=== PATIENT | male | born 1995 | race African-American/Black ===

== ENCOUNTER 2018-12-31 13:24 | Emergency (ER) | payer OTHER ==
[2018-12-31 13:57] VITALS: BP 130/88; PULSE 80; TEMP 98.2; BMI 29.2
--- NOTE | 2018-12-31 14:06 | PDOC ---
History of Present Illness - General Chief Complaint: Laceration Stated Complaint: RT HAND MIDDLE FINGER Laceration Time Seen by Provider: 12/31/18 13:55 History Source: Patient Exam Limitations: No Limitations - History of Present Illness Initial Comments: 12/31/18 14:00 HISTORY OF PRESENT ILLNESS: This is a 23-year-old male presents emergency department for evaluation of laceration to right third digit sustained while preparing lunch. Patient was making hot dogs and noodles when he became distracted and accidentally cut his knuckle with the kitchen knife. Patient washed his immediately and then applied a dressing prior to coming to the emergency department. Patient is right-hand dominant. Last tetanus shot is unknown. No recent travel or sick contacts. PAST MEDICAL HISTORY: Denies past medical history SURGICAL HISTORY: Denies ALLERGIES: No known drug allergies REVIEW OF SYSTEMS General/Constitutional: Denies fever or chills. Denies weakness, weight change. HEENT: Denies change in vision. Denies ear pain or discharge. Denies sore throat. Cardiovascular: Denies chest pain or shortness of breath. Respiratory: Denies cough, wheezing, or hemoptysis. Gastrointestinal: Denies nausea, vomiting, diarrhea or constipation. Denies rectal bleeding. Genitourinary: Denies dysuria, frequency, or change in urination. Musculoskeletal: Denies joint or muscle swelling or pain. Denies neck or back pain. Skin and breasts: see HPI Neurologic: Denies headache, vertigo, loss of consciousness, or loss of sensation. Psychiatric: Denies depression or anxiety. Endocrine: Denies increased thirst. Denies abnormal weight change. Hematologic/Lymphatic: Denies anemia, easy bleeding, or history of blood clots. Allergic/Immunologic: Denies hives or skin allergy. Denies latex allergy. PHYSICAL EXAM General Appearance: Well-appearing, appropriately dressed. No apparent distress , no intoxication. Respiratory/Chest: Lungs CTAB. No shortness of breath, chest tenderness, respiratory distress, accessory muscle use. No crackles, rales, rhonchi, stridor , wheezing, dullness Cardiovascular: RRR. S1, S2. No JVD, murmur, bradycardia, tachycardia. Musculoskeletal/Extremities: Normal inspection. FROM of all extremities, normal capillary refill. Pelvis Stable. No CVA tenderness. No tenderness to extremities, pedal edema, swelling, erythema or deformity. Integumentary: Approximate 1 cm transverse linear superficial laceration present to the dorsum of the right third finger over the proximal aspect of the middle phalanx. Bleeding is well-controlled. Full flexion and extension of the digit without difficulty. Normal sensation distal to the injury. Capillary refill is less than 2 seconds. Neurologic: tailings man II-XII intact. Fully oriented, alert. Appropriate mood/affect. Motor strength 5/5. No appreciable EOM palsy, facial droop or sensory deficit. 12/31/18 14:25 Past History - Past Medical History Allergies/Adverse Reactions: Allergies Allergy/AdvReac Type Severity Reaction Status Date / Time No Known Allergies Allergy Verified 01/29/16 12:44 Home Medications: Ambulatory Orders Naproxen [Naprosyn -] 500 mg PO BID #14 tablet 01/29/16 COPD: No - Immunization History Immunization Up to Date: Yes - Suicide/Smoking/Psychosocial Hx Smoking Status: Yes Smoking History: Never smoked Number of Cigarettes Smoked Daily: 0 Hx Alcohol Use: No Drug/Substance Use Hx: No Substance Use Type: None *Physical Exam - Vital Signs Last Vital Signs Temp Pulse Resp BP Pulse Ox 98.2 F 80 17 130/88 98 12/31/18 13:43 12/31/18 13:43 12/31/18 13:43 12/31/18 13:43 12/31/18 13:43 Procedures - Consent Consent obtained: Verbal, From Patient - Laceration/Wound Repair Right Dorsal Finger 3rd digit Wound Length: to 2.5 cm Wound Explored: clean Wound's Depth, Shape: superficial, linear Irrigated w/ Saline: Yes Betadine Prep: Yes Anesthesia: 1% Lidocaine Amount of Anesthetic (ccs): 4 Wound Debrided: minimal Wound Repaired With: Sutures Suture Size/Type: 5:0, proline Number of Sutures: 2 Layer Closure: No Sterile Dressing Applied: Yes Splint Applied: Yes Type of Splint Applied: baseball splint Sling Applied: No Progress: 12/31/18 14:24 Patient tolerated well. Medical Decision Making - Medical Decision Making 12/31/18 14:04 A/P: 23-year-old male with laceration to right third finger Tetanus shot Laceration repair-see procedure note for details Discharge home Portions of this note have been documented using voice recognition software. As a result, errors may occur in the pharmacy sales representative process. Effort has been made to correct all grammatical and pharmacy sales representative error, but some may have been missed. 12/31/18 14:25 *DC/Admit/Observation/Transfer Diagnosis at time of Disposition: Finger laceration Qualifiers: Encounter type: initial encounter Finger: middle finger Damage to nail status: without damage Foreign body presence: without foreign body Laterality: right Qualified Code(s): S61.212A - Laceration without foreign body of right middle finger without damage to nail, initial encounter - Discharge Dispostion Disposition: HOME Condition at time of disposition: Stable Decision to Admit order: No - Referrals Referrals: Walter Castorena MD [Primary Care Provider] - - Patient Instructions Additional Instructions: Rest, elevate, avoid strenuous activity or heavy lifting until sutures are removed Leave dressing on for the next 24 hours, Then may remove dressing gently and wash area with soap and water. Reapply bacitracin ointment and dressing daily for the next 5 days On day #6 keep the wound protected and cover as needed until sutures are removed allowing wound to start to dry May use Tylenol or Motrin for pain relief Suture removal in : 7-10 Days - Post Discharge Activity Forms/Work/School Notes: Back to Work
[2018-12-31] MEDS ORDERED: DIPHTH,PERTUSS(ACELL),TET 0.5 ML DISP.SYRIN IM ONE ×2 (14:32→14:36)
== END 2018-12-31 14:38 | disposition home or self-care (01) ==
LOC: JERFT 13:24
PROC: 0HQFXZZ Repair Right Hand Skin, External Approach (ICD-10-PCS; principal; 2018-12-31)
PROC: 3E0234Z Introduction of Serum, Toxoid and Vaccine into Muscle, Percutaneous Approach (ICD-10-PCS; 2018-12-31)
DX: S61.212A Laceration without foreign body of right middle finger without damage to nail, initial encounter (principal); W26.0XXA Contact with knife, initial encounter; Y93.89 Activity, other specified; Y92.89 Other specified places as the place of occurrence of the external cause
CPT/HCPCS: 12001-25; 90471; 90715; 99281-25

== ENCOUNTER 2019-01-08 11:30 | Emergency (ER) | payer OTHER ==
[2019-01-08 11:42] VITALS: BP 136/71; PULSE 68; TEMP 98.4; BMI 32.8
--- NOTE | 2019-01-08 12:41 | PDOC ---
Suture Removal/Wound Check HPI - History of Present Illness Chief Complaint: Suture/Staple Removal(Here) Stated Complaint: STITCHES REMOVAL Time Seen by Provider: 01/08/19 11:44 Date of Last ED visit: 12/31/18 - Previous ED Treatment Tetanus Immunization: Yes: Given at last ED visit Antibiotics Prescribed: No - Onset of Previous Treatment Date of Occurence: 12/31/18 Comment:: 01/08/19 12:36 Patient presented to fast track for suture removal. Patient sustained laceration by knife while preparing lunch one week ago. Received two 5-0 prolene stitches to dorsal aspect of 3rd R finger. Stitches removed. Wound site not approximated, with purulent discharge to site of wound and TTP on palpation to surrounding skin. Sutures inappropriate at this time given the injury occurred a week ago. Will rx antibiotics for concern for infection to finger. -Bactrim/keflex rx sent to pharm Patient advised to follow up with hand specialist within the next 2 days. Advised patient to take medication as prescribed. Advised patient of signs and symptoms for return to ED. Patient verbalized understanding and agrees to plan. 01/08/19 12:45 Past History - Past Medical History Allergies/Adverse Reactions: Allergies Allergy/AdvReac Type Severity Reaction Status Date / Time No Known Allergies Allergy Verified 01/08/19 11:41 Home Medications: Ambulatory Orders Naproxen [Naprosyn -] 500 mg PO BID #14 tablet 01/29/16 Cephalexin [Keflex] 500 mg PO BID #14 capsule 01/08/19 Sulfamethoxazole/Trimethoprim [Bactrim Ds -] 1 tab PO BID #14 tablet 01/08/19 COPD: No - Immunization History Immunization Up to Date: Yes - Suicide/Smoking/Psychosocial Hx Smoking Status: Yes Smoking History: Never smoked Number of Cigarettes Smoked Daily: 0 Information on smoking cessation initiated: Yes Hx Alcohol Use: No Drug/Substance Use Hx: No Substance Use Type: None *Physical Exam - Vital Signs Last Vital Signs Temp Pulse Resp BP Pulse Ox 98.4 F 68 18 136/71 100 01/08/19 11:38 01/08/19 11:38 01/08/19 11:38 01/08/19 11:38 01/08/19 11:38 *DC/Admit/Observation/Transfer Diagnosis at time of Disposition: Laceration of finger Qualifiers: Encounter type: initial encounter Finger: middle finger Damage to nail status: with damage Foreign body presence: without foreign body Laterality: right Qualified Code(s): S61.312A - Laceration without foreign body of right middle finger with damage to nail, initial encounter - Discharge Dispostion Disposition: HOME Condition at time of disposition: Stable Decision to Admit order: No - Prescriptions Prescriptions: Cephalexin [Keflex] 500 mg PO BID #14 capsule Sulfamethoxazole/Trimethoprim [Bactrim Ds -] 1 tab PO BID #14 tablet - Referrals Referrals: Walter Castorena MD [Primary Care Provider] - Modesto Kim MD [Staff Physician] - Danny Feliciano MD [Staff Physician] - - Patient Instructions Printed Discharge Instructions: DI for Open Laceration Additional Instructions: Take medications as prescribed. Please follow up with the hand specialist within the next 2 days for further monitoring of your wound. If you develop any fever, chills, vomiting, diarrhea, or you develop redness, swelling, or worsening pain to your finger, please return to the ER immediately. - Post Discharge Activity
== END 2019-01-08 12:53 | disposition home or self-care (01) ==
LOC: JERFT 11:30
DX: Z48.817 Encounter for surgical aftercare following surgery on the skin and subcutaneous tissue (principal); Z48.02 Encounter for removal of sutures; S61.312D Laceration without foreign body of right middle finger with damage to nail, subsequent encounter; W26.0XXD Contact with knife, subsequent encounter
CPT/HCPCS: 99281-25